=== PATIENT | male | born 1985 | race Caucasian/White ===

== ENCOUNTER 2023-12-02 15:46 | Inpatient (IN) | payer MEDICAID ==
[~2023-12-02] VITALS: Ht 185.4 cm; Wt 197.8 kg
[2023-12-02 15:51] VITALS: BP_SYST 145; PULSE 147; RESP 19; TEMP 104; O2SAT 95
[2023-12-02] MEDS: levETIRAcetam 1,000 MG in NS 90 ML IV ONE (16:08)
[2023-12-02] MEDS: ACETAMINOPHEN 500 MG TABLET PO ONE (16:19)
[2023-12-02] MEDS: NACL 0.9% 1,000 ML IV ONE (16:19)
[2023-12-02] MEDS ORDERED: ACETAMINOPHEN 500 MG TABLET ONE (16:24)
[2023-12-02 16:28] LABS: BASOPHILS % (AUTO) 0.3 % (0.0-2.0); HEMATOCRIT 37.5 % (36-54); HEMOGLOBIN 12.8 g/dL (14.0-18.0); LYMPHOCYTES # (AUTO) 0.2 K/uL (1.0-5.5); LYMPHOCYTES % (AUTO) 2.5 % (20.5-51.5); MEAN CORPUSCULAR HEMOGLOBIN 32 pg (27-31); MEAN CORPUSCULAR HGB CONC 34 % (32-36); MEAN CORPUSCULAR VOLUME 92 fL (79.0-98.0); MONOCYTES # (AUTO) 0.1 K/uL (0.0-1.0); MONOCYTES % (AUTO) 1.3 % (1.7-9.3); NEUTROPHILS % (AUTO) 95.9 % (40.0-70.0); PLATELET COUNT (AUTO) 75 K/uL (130-430); RED BLOOD CELL COUNT(AUTO) 4.07 MIL/uL (4.2-6.2); RED CELL DISTRIBUTION WIDTH 15.2 % (9.0-15.0); WHITE BLOOD COUNT (AUTO) 7.3 K/uL (4.8-10.8)
[2023-12-02 16:39] LABS: BILIRUBIN,URINE 1+ (NEGATIVE); BLOOD, URINE 3+ (NEGATIVE); CLARITY/URINE CLOUDY (CLEAR); GLUCOSE,URINE NEGATIVE (NEGATIVE); KETONES,URINE NEGATIVE (NEGATIVE); LEUKOCYTE ESTERASE ,URINE 3+ (NEGATIVE); NITRITE, URINE POSITIVE (NEGATIVE); PROTEIN URINE 2+ (NEGATIVE)
[2023-12-02 16:45] LABS: COLOR,URINE REDDISH (YELLOW)
[2023-12-02 17:03] LABS: INR 1.6 (0.80-1.20)
[2023-12-02 17:09] LABS: ALBUMIN 2.1 g/dL (3.4-4.8); BILIRUBIN,DIRECT 1.1 mg/dL (0.0-0.3); CALCIUM 7.8 mg/dL (8.4-11.0); CREATININE 1.35 mg/dL (0.55-1.30); POTASSIUM 4.2 mmol/L (3.5-5.1); TOTAL BILIRUBIN 3.7 mg/dL (0.0-1.0); TOTAL PROTEIN, SERUM 6.3 g/dL (6.4-8.3)
[2023-12-02 17:09] LABS: BARBITURATE, URINE NEGATIVE (NEG <=200); BENZODIAZEPINE, URINE NEGATIVE (NEG <=150); CANNABINOID, URINE NEGATIVE (NEG <=50); COCAINE, URINE NEGATIVE (NEG <=150); METHAMPHETAMINES SCREEN,URINE NEGATIVE (NEG <=500); OPIATE, URINE NEGATIVE (NEG <=100); PHENCYCLIDINE SCREEN,URINE NEGATIVE (NEG <=25); UR TRICYCLIC ANTIDEPRESSANTS NEGATIVE (NEG <=300); URINE AMPHETAMINE NEGATIVE (NEG <=500); URINE METHADONE POSITIVE (NEG <=200); URINE OXYCODONE SCREEN NEGATIVE (NEG <=100)
[2023-12-02] MEDS: NS 1000 ML IV.SOLN IV ONE (17:14)
[2023-12-02] MEDS ORDERED: cefTRIAXone 2 GM VIAL ONE (17:16)
[2023-12-02 17:18] LABS: PROTHROMBIN TIME 16.6 SECS (9.5-12.5)
[2023-12-02 17:59] LABS: RBC,URINE >100 /HPF (0-3); WBC,URINE 20-50 /HPF (0-3)
[2023-12-02 18:00] LABS: BACTERIA,URINE MANY /HPF (None Seen)
[2023-12-02] MEDS ORDERED: LORazepam 2 MG/ML VIAL IVP PRN (20:00)
[2023-12-02] MEDS ORDERED: ACETAMINOPHEN 500 MG TABLET PO PRN (20:00)
[2023-12-02] MEDS: NACL 0.9% 2,000 ML IV ONE (20:11)
[2023-12-02] MEDS ORDERED: HYDR-3917 PO (20:19)
[2023-12-02] MEDS ORDERED: LEVE10006 PO (20:19)
[2023-12-02] MEDS ORDERED: LISI-209 PO (20:19)
[2023-12-02] MEDS ORDERED: TRAZ-250 PO (20:19)
[2023-12-02] MEDS ORDERED: LACT10SO6 PO (20:19)
[2023-12-02] MEDS: levETIRAcetam 1,000 MG in NS 100 ML IV SCH (21:00)
[2023-12-02 22:20] VITALS: BP_SYST 116; PULSE 104; RESP 18; TEMP 99
[2023-12-02] MEDS: NACL 0.9% 1,000 ML IV SCH (23:03)
[2023-12-02] MEDS: PIPERACILLIN/TAZOBACTAM 4.5 GM/VIAL (ZOSYN) IV ONE (23:08)
[2023-12-02] MEDS: PIPERACILLIN/TAZO 4.5 GM in D5W 100 ML IV SCH (23:34)
[2023-12-03 04:56] LABS: BASOPHILS % (AUTO) 0.5 % (0.0-2.0); EOSINOPHILS % (AUTO) 0.1 % (0.0-4.0); HEMATOCRIT 34.3 % (36-54); HEMOGLOBIN 11.8 g/dL (14.0-18.0); LYMPHOCYTES # (AUTO) 0.2 K/uL (1.0-5.5); LYMPHOCYTES % (AUTO) 5.1 % (20.5-51.5); MEAN CORPUSCULAR HEMOGLOBIN 32 pg (27-31); MEAN CORPUSCULAR HGB CONC 35 % (32-36); MEAN CORPUSCULAR VOLUME 93 fL (79.0-98.0); MONOCYTES # (AUTO) 0.3 K/uL (0.0-1.0); MONOCYTES % (AUTO) 6.5 % (1.7-9.3); NEUTROPHILS # (AUTO) 3.8 K/uL (1.8-7.7); NEUTROPHILS % (AUTO) 87.8 % (40.0-70.0); RED BLOOD CELL COUNT(AUTO) 3.67 MIL/uL (4.2-6.2); RED CELL DISTRIBUTION WIDTH 15.3 % (9.0-15.0); WHITE BLOOD COUNT (AUTO) 4.3 K/uL (4.8-10.8)
[2023-12-03 05:27] LABS: PLATELET COUNT (AUTO) 59 K/uL (130-430)
[2023-12-03] MEDS: ACETAMINOPHEN 500 MG TABLET PO PRN (05:53)
[2023-12-03 06:29] LABS: ALBUMIN 1.8 g/dL (3.4-4.8); CREATININE 1.23 mg/dL (0.55-1.30); POTASSIUM 4.5 mmol/L (3.5-5.1); TOTAL PROTEIN, SERUM 5.4 g/dL (6.4-8.3)
[2023-12-03 08:00] VITALS: BP_SYST 133; PULSE 85; RESP 24; TEMP 98.5; O2SAT 97
[2023-12-03 11:05] VITALS: BP_SYST 120; PULSE 93; RESP 22; TEMP 98.6; O2SAT 95
[2023-12-03] MEDS: PIPERACILLIN/TAZOBACTAM 4.5 GM/ D5W 100 ML IV ONE (15:57)
[2023-12-03 16:07] VITALS: BP_SYST 123; PULSE 95; RESP 22; TEMP 98.7; O2SAT 95
[2023-12-03 20:00] VITALS: BP_SYST 150; PULSE 89; RESP 18; TEMP 99.3; O2SAT 99
[2023-12-03] MEDS: PIPERACILLIN/TAZOBACTAM 4.5 GM/ D5W 100 ML IV SCH (21:21)
[2023-12-04] VITALS: BP_SYST 150; PULSE 79; RESP 18; TEMP 97.6; O2SAT 100
[2023-12-04 08:00] VITALS: BP_SYST 141; PULSE 79; RESP 18; TEMP 97.1; O2SAT 99
[2023-12-04 11:06] VITALS: BP_SYST 133; PULSE 96; RESP 15; TEMP 97.9; O2SAT 92
[2023-12-04 16:03] VITALS: BP_SYST 128; BP_SYST 146; PULSE 96; RESP 15; RESP 18; TEMP 97.7; O2SAT 100; O2SAT 93
[2023-12-04] MEDS: EXCEDRIN EXTRA STRENGTH PO PRN (17:04)
[2023-12-04 20:50] VITALS: BP_SYST 152; PULSE 80; RESP 16; TEMP 98.4; O2SAT 98
[2023-12-05 00:19] VITALS: BP_SYST 154; PULSE 75; RESP 17; TEMP 97.8; O2SAT 100
[2023-12-05 07:38] LABS: BASOPHILS % (AUTO) 1.2 % (0.0-2.0); EOSINOPHILS # (AUTO) 0.2 K/uL (0.0-0.4); EOSINOPHILS % (AUTO) 7.1 % (0.0-4.0); HEMATOCRIT 32.9 % (36-54); HEMOGLOBIN 11.3 g/dL (14.0-18.0); LYMPHOCYTES % (AUTO) 33.2 % (20.5-51.5); MEAN CORPUSCULAR HEMOGLOBIN 32 pg (27-31); MEAN CORPUSCULAR HGB CONC 35 % (32-36); MEAN CORPUSCULAR VOLUME 92 fL (79.0-98.0); MONOCYTES # (AUTO) 0.3 K/uL (0.0-1.0); MONOCYTES % (AUTO) 11.1 % (1.7-9.3); NEUTROPHILS # (AUTO) 1.4 K/uL (1.8-7.7); NEUTROPHILS % (AUTO) 47.4 % (40.0-70.0); PLATELET COUNT (AUTO) 66 K/uL (130-430); RED BLOOD CELL COUNT(AUTO) 3.58 MIL/uL (4.2-6.2); RED CELL DISTRIBUTION WIDTH 14.9 % (9.0-15.0)
[2023-12-05 07:54] LABS: CALCIUM 7.3 mg/dL (8.4-11.0); CREATININE 0.78 mg/dL (0.55-1.30); POTASSIUM 3.8 mmol/L (3.5-5.1)
[2023-12-05 08:00] VITALS: BP_SYST 140; PULSE 69; RESP 19; TEMP 97.5; O2SAT 98
[2023-12-05 12:00] VITALS: BP_SYST 145; PULSE 72; RESP 18; TEMP 97.7; O2SAT 97
[2023-12-05 16:00] VITALS: BP_SYST 138; PULSE 86; RESP 18; TEMP 98.9; O2SAT 99
[2023-12-05 20:00] VITALS: BP_SYST 159; PULSE 73; RESP 18; TEMP 97.9; O2SAT 97
[2023-12-06] VITALS (7 sets, daily range): BP systolic 120–156; PULSE 74–89; RESP 16–19; TEMP 97–98.4; O2SAT 96–100
[2023-12-06] MEDS: AMPICILLIN SODIUM 2 GM in NS 100 ML IV SCH (13:37)
[2023-12-06] MEDS: LACTULOSE 20 GM/30 ML UDC PO SCH (16:53)
[2023-12-07 00:54] VITALS: BP_SYST 119; PULSE 74; RESP 19; TEMP 97.6; O2SAT 97
[2023-12-07 04:40] LABS: BASOPHILS # (AUTO) 0.1 K/uL (0.0-0.2); BASOPHILS % (AUTO) 1.2 % (0.0-2.0); EOSINOPHILS # (AUTO) 0.4 K/uL (0.0-0.4); EOSINOPHILS % (AUTO) 8.5 % (0.0-4.0); HEMATOCRIT 34.1 % (36-54); HEMOGLOBIN 11.8 g/dL (14.0-18.0); LYMPHOCYTES # (AUTO) 1.8 K/uL (1.0-5.5); LYMPHOCYTES % (AUTO) 38.8 % (20.5-51.5); MEAN CORPUSCULAR HEMOGLOBIN 32 pg (27-31); MEAN CORPUSCULAR HGB CONC 35 % (32-36); MEAN CORPUSCULAR VOLUME 92 fL (79.0-98.0); MONOCYTES # (AUTO) 0.4 K/uL (0.0-1.0); MONOCYTES % (AUTO) 8.5 % (1.7-9.3); PLATELET COUNT (AUTO) 89 K/uL (130-430); RED BLOOD CELL COUNT(AUTO) 3.72 MIL/uL (4.2-6.2); RED CELL DISTRIBUTION WIDTH 15.4 % (9.0-15.0); WHITE BLOOD COUNT (AUTO) 4.6 K/uL (4.8-10.8)
[2023-12-07 05:26] LABS: ALBUMIN 1.8 g/dL (3.4-4.8); CALCIUM 7.4 mg/dL (8.4-11.0); CREATININE 0.67 mg/dL (0.55-1.30); POTASSIUM 3.9 mmol/L (3.5-5.1); TOTAL BILIRUBIN 1.4 mg/dL (0.0-1.0); TOTAL PROTEIN, SERUM 5.7 g/dL (6.4-8.3)
[2023-12-07 08:00] VITALS: BP_SYST 128; PULSE 94; RESP 18; TEMP 98.7; O2SAT 99
[2023-12-07 12:00] VITALS: BP_SYST 124; PULSE 98; RESP 18; TEMP 98.6; O2SAT 97
[2023-12-07 16:00] VITALS: BP_SYST 132; PULSE 89; RESP 18; TEMP 98.9; O2SAT 98
[2023-12-07 19:00] VITALS: O2SAT 98
[2023-12-07 20:00] VITALS: BP_SYST 121; PULSE 76; RESP 19; TEMP 98.3; O2SAT 98
[2023-12-07] MEDS: levETIRAcetam 1,000 MG IV BAG 100 ML IV SCH (20:38)
[2023-12-08 00:51] VITALS: BP_SYST 131; PULSE 85; RESP 20; TEMP 97.8; O2SAT 96
[2023-12-08 08:18] VITALS: BP_SYST 163; PULSE 74; RESP 18; TEMP 97.2; O2SAT 100
[2023-12-08 20:27] VITALS: BP_SYST 160; PULSE 82; RESP 18; TEMP 97.4; O2SAT 97
[2023-12-09] VITALS (7 sets, daily range): BP systolic 134–148; PULSE 66–76; RESP 17–18; TEMP 97–99; O2SAT 97–100
[2023-12-09 05:59] LABS: BASOPHILS # (AUTO) 0.1 K/uL (0.0-0.2); BASOPHILS % (AUTO) 1.1 % (0.0-2.0); EOSINOPHILS # (AUTO) 0.6 K/uL (0.0-0.4); EOSINOPHILS % (AUTO) 11.6 % (0.0-4.0); HEMATOCRIT 32.8 % (36-54); HEMOGLOBIN 11.4 g/dL (14.0-18.0); LYMPHOCYTES # (AUTO) 1.7 K/uL (1.0-5.5); LYMPHOCYTES % (AUTO) 33.5 % (20.5-51.5); MEAN CORPUSCULAR HEMOGLOBIN 32 pg (27-31); MEAN CORPUSCULAR HGB CONC 35 % (32-36); MEAN CORPUSCULAR VOLUME 93 fL (79.0-98.0); MONOCYTES # (AUTO) 0.4 K/uL (0.0-1.0); MONOCYTES % (AUTO) 7.2 % (1.7-9.3); NEUTROPHILS # (AUTO) 2.4 K/uL (1.8-7.7); NEUTROPHILS % (AUTO) 46.6 % (40.0-70.0); PLATELET COUNT (AUTO) 95 K/uL (130-430); RED BLOOD CELL COUNT(AUTO) 3.54 MIL/uL (4.2-6.2); RED CELL DISTRIBUTION WIDTH 14.9 % (9.0-15.0); WHITE BLOOD COUNT (AUTO) 5.1 K/uL (4.8-10.8)
[2023-12-09 06:01] LABS: INR 1.6 (0.80-1.20); PROTHROMBIN TIME 16.4 SECS (9.5-12.5)
[2023-12-09 07:00] LABS: ALBUMIN 1.6 g/dL (3.4-4.8); CREATININE 0.54 mg/dL (0.55-1.30); POTASSIUM 3.7 mmol/L (3.5-5.1); TOTAL BILIRUBIN 1.7 mg/dL (0.0-1.0); TOTAL PROTEIN, SERUM 5.5 g/dL (6.4-8.3)
[2023-12-09] MEDS: levETIRAcetam 500 MG TABLET PO SCH (10:06)
[2023-12-09] MEDS ORDERED: AMOX500C2 PO (17:34)
[2023-12-10 00:39] VITALS: BP_SYST 135; PULSE 66; RESP 18; TEMP 97.7; O2SAT 97
[2023-12-10 08:53] VITALS: BP_SYST 129; PULSE 83; RESP 16; TEMP 97.3; O2SAT 99
== END 2023-12-10 09:35 | disposition home or self-care (01) | DRG 720 ==
LOC: SED 15:46 → STU 19:38 → SMU 12-06 01:59
PROVIDERS: ADMIT Internal Medicine; ATTEND Internal Medicine
PROC: 4A10X4Z Monitoring of Central Nervous Electrical Activity, External Approach (ICD-10-PCS; principal; 2023-12-02)
DX: A41.81 Sepsis due to Enterococcus (principal); E43 Unspecified severe protein-calorie malnutrition; K74.60 Unspecified cirrhosis of liver; Z68.43 Body mass index [BMI] 50.0-59.9, adult; E66.01 Morbid (severe) obesity due to excess calories; N39.0 Urinary tract infection, site not specified; G89.4 Chronic pain syndrome; K80.20 Calculus of gallbladder without cholecystitis without obstruction; I10 Essential (primary) hypertension; G40.909 Epilepsy, unspecified, not intractable, without status epilepticus
CPT/HCPCS: 36415; 70450-TC; 71045; 76700; 80048; 80053; 80076; 80307; 81000; 81001; 81015; 82140; 82542; 83605; 83880; 84484; 85025; 85610; 85651; 85730; 87040; 87086; 87186; 93005; 93306; 95816; 96365; 96367; 97110-GP; 97116-GP; 97530-GP; 99285; G0378; J0290; J0696; J1953; J2543; J7060